=== PATIENT | male | born 1975 | race Two or more races ===

== ENCOUNTER 2018-10-17 20:36 | Emergency (ER) | payer MEDICAID ==
[~2018-10-17] VITALS: Ht 172.7 cm; Wt 74.8 kg
--- NOTE | 2018-10-17 20:56 | NUR ---
Dr. Cantor at bedside for MSE.
[2018-10-17] MEDS ORDERED: chlorproMAZINE 50 MG/2 ML AMPUL IM ONE (21:00)
[2018-10-17] MEDS ORDERED: QUET400T PO (21:02)
[2018-10-17] MEDS ORDERED: chlorproMAZINE 50 MG/2 ML AMPUL ONE (21:15)
[2018-10-17 21:26] LABS: BASOPHILS # (AUTO) 0.1 K/uL (0.0-8.0); EOSINOPHILS # (AUTO) 0.2 K/uL (0.0-0.7); NEUTROPHILS # (AUTO) 3.4 K/uL (1.8-8.9); WHITE BLOOD COUNT (AUTO) 7.8 K/uL (3.6-10.2)
[2018-10-17 21:31] LABS: BASOPHILS % (AUTO) 0.9 % (0.0-2.0); EOSINOPHILS % (AUTO) 2.1 % (0.0-7.0); HEMATOCRIT 36.6 % (36.7-47.1); LYMPHOCYTES # (AUTO) 3.2 K/uL (20.0-40.0); LYMPHOCYTES % (AUTO) 40.5 % (20.5-51.5); MEAN CORPUSCULAR HEMOGLOBIN 30.5 uug (23.8-33.4); MEAN CORPUSCULAR HGB CONC 36 g/dL (32.5-36.3); MEAN CORPUSCULAR VOLUME 85.8 fL (73.0-96.2); NEUTROPHILS % (AUTO) 43.5 % (38.5-71.5); PLATELET COUNT (AUTO) 268 K/uL (152-348); RED BLOOD CELL COUNT(AUTO) 4.27 MIL/uL (4.06-5.63)
--- NOTE | 2018-10-17 21:31 | NUR ---
Pt unable to provide urine sample. Provided a hospital sandwich.
[2018-10-17 21:33] LABS: CARBON DIOXIDE 28 mmol/L (21-32); CHLORIDE 102 mmol/L (98-107); CREATININE 0.9 mg/dL (0.6-1.3); GLUCOSE 98 mg/dL (74-106); POTASSIUM 3.7 mmol/L (3.5-5.1); UREA NITROGEN, BLOOD 13 mg/dL (7-18)
[2018-10-17 21:40] LABS: ALANINE AMINOTRANSFERASE 41 U/L (16-63); ALKALINE PHOSPHATASE 138 U/L (50-136); ASPARTATE AMINOTRANSFERASE 53 U/L (15-37); BILIRUBIN,DIRECT 0.1 mg/dL (0.0-0.2); BILIRUBIN,TOTAL 0.4 mg/dL (0.2-1.0); TOTAL PROTEIN, SERUM 7.3 g/dL (6.4-8.2)
[2018-10-17 21:42] LABS: ACETAMINOPHEN < 2.0 ug/mL (10-30)
[2018-10-17 21:50] LABS: ETHANOL 207 MG/DL (0-0)
--- NOTE | 2018-10-17 22:00 | NUR ---
Pt placed to room 3A. Pt keeps getting in and out of bed. Sitter at bedside.
[2018-10-17 22:04] LABS: THYROID STIMULATING HORMONE 1.849 mIU/mL (0.358-3.740)
--- NOTE | 2018-10-17 22:20 | NUR ---
Pt went down to radiology dept for CT scan.
--- NOTE | 2018-10-17 22:34 | NUR ---
Pt back from radiology dept, placed back to room 3A.
--- NOTE | 2018-10-18 00:12 | NUR ---
Pt is sleeping in bed. No acute distress noted. Respirations even + unlabored.
--- NOTE | 2018-10-18 02:40 | NUR ---
Pt is sleeping in bed. Respirations even + unlabored. No acute distress noted.
--- NOTE | 2018-10-18 05:00 | NUR ---
Pt ambulated to restroom, provided urine sample, sent to lab.
--- NOTE | 2018-10-18 05:01 | NUR ---
d/c russo catheter order
[2018-10-18 05:12] LABS: *BILIRUBIN,URIN NEGATIVE (NEGATIVE); *BLOOD, URINE NEGATIVE (NEGATIVE); *CLARITY,URINE CLEAR (CLEAR); *COLOR,URINE YELLOW (YELLOW); *KETONES,URINE NEGATIVE (NEGATIVE); LEUKOCYTE ESTERASE ,URINE NEGATIVE (NEGATIVE); NITRITE, URINE NEGATIVE (NEGATIVE); UGLUCOSE NEGATIVE (NEGATIVE)
[2018-10-18 05:29] LABS: BACTERIA,URINE NONE SEEN /HPF (NONE SEEN); RBC,URINE 0-3 /HPF (0-3); SQUAMOUS EPITHELIAL CELL,UR FEW /HPF (NONE SEEN); WBC,URINE 0-3 /HPF (0-3)
[2018-10-18 05:31] LABS: *AMPHETAMINE, URINE POSITIVE (NEGATIVE); *BARBITURATE, URINE NEGATIVE (NEGATIVE); *CANNABINOID, URINE POSITIVE (NEGATIVE); *COCCAINE, URINE NEGATIVE (NEGATIVE); *OPIATE, URINE NEGATIVE (NEGATIVE); *PHENCYCLIDINE SCREEN,URINE NEGATIVE (NEGATIVE)
--- NOTE | 2018-10-18 07:03 | NUR ---
Paged Mejia Saucedo for PET eval. ETA 1 hr
--- NOTE | 2018-10-18 07:03 | NUR ---
Report given to day shift nurse.
--- NOTE | 2018-10-18 07:10 | NUR ---
1 to 1 sitter at the bedside for safety. pt resting in bed w/ both eyes closed. NAD noted.
--- NOTE | 2018-10-18 07:51 | NUR ---
Breakfast provided, pt ate 100% of tray. no c/o pain.
--- NOTE | 2018-10-18 08:54 | NUR ---
Mejia Saucedo from PET at the bedside for Rik ceballos.
--- NOTE | 2018-10-18 09:05 | NUR ---
powder workerMadai contacted for homeless assissrtance protocol.
--- NOTE | 2018-10-18 09:53 | NUR ---
Patient discharged in stable conditon. Written and verbal after care instructions given. Patient verbalizes understanding of instructions. Pt discharged per hospital homeless protocol.
--- NOTE | 2018-10-18 10:43 | NUR ---
9:15am: SW arrived to ED for SS consultation. SW spoke with CLAIR Lutz and endless steamer tender Mejia Saucedo regarding patient's case. Patient is medically cleared and also cleared by Mejia Saucedo (see Mjeia Saucedo's notes). SW met with patient to discuss homeless placement options and homeless resources. Patient is a 43 year old homeless male. Patient was in his assigned ED bed, receptive to meeting with this SW. Patient was pleasant and cooperative, oriented x 4. Patient stated he has been homeless for 4 years, living either on the streets or in shelters. SW asked patient if there was any family/friend that SW could call for him, but patient stated that he did not have any family/friends to contact. Patient was dressed in jeans, a sweater, and tennis shoes, all were clean and well kept. SW offered patient additional clothing, but patient declined stating that he was fine with the clothes he had and they were warm. SW discussed winter long-term options, along with additional homeless resources for places to go for meals, showers, medical/mental health services, and pharmacies. Patient expressed agreement to all resources discussed. SW offered patient the option to wait until the afternoon for the hospital to transport him to a long-term's pick-up location, but patient declined and stated that he could get there himself. SW provided patient with a list of the [facility] shelters, identifying the ones in the [facility] and reviewing the orange picker machine operator locations and times with the patient. Patient expressed understanding. SW also provided patient with a list of pharmacies throughout the [facility], a list of medical clinics, mental health clinics, and substance abuse treatment programs, and the [facility] Homeless Resource Directory which includes a list of locations, with days and times, for homeless to get hot meals, showers, sack lunches, and food pantries. Patient asked for a prescription of Seroquel, which was provided by Dr. Montana. SW once again screened for SI, but patient denied. Patient provided with a bus token. Patient was provided with a breakfast tray, which he ate. Patient expressed understanding of all resources provided, expressed gratitude, and was discharged to self. Patient signed the homeless patient waiver form, and left the ED with stable gait. The signed homeless waiver form filed in patient's ED chart. Copies of all resources provided were also filed in patient's ED chart.
== END 2018-10-18 09:56 | disposition home or self-care (01) ==
LOC: ER 20:36
DX: R41.0 Disorientation, unspecified (principal); F32.9 Major depressive disorder, single episode, unspecified; Z79.899 Other long term (current) drug therapy; Z59.0 Homelessness
CPT/HCPCS: 36415; 70450; 71045; 72125; 80048; 80076; 80307; 81001; 82140; 84443; 84484; 85025; 85730; 93005; 96372; 99284; G0480 ×2; G0481; J3230; 70030-TC; A4663

== ENCOUNTER 2019-11-02 04:17 | Emergency (ER) | payer MEDICAID ==
[~2019-11-02] VITALS: Ht 175.3 cm; Wt 77.1 kg
--- NOTE | 2019-11-02 04:47 | NUR ---
PATIENT WAS MSE BY DR GUNDERSON IN ROOM 03A.
[2019-11-02] MEDS ORDERED: QUETIAPINE FUMARATE 200 MG TABLET ONE (04:51)
[2019-11-02] MEDS ORDERED: QUETIAPINE FUMARATE 25 MG TABLET PO ONE (05:00)
--- NOTE | 2019-11-02 05:04 | NUR ---
PT IS RESTING IN BED COMFORTABLY. NO S/S OF DISTRESS AT THIS TIME. CONTINUE TO MONITOR THE PT.
--- NOTE | 2019-11-02 07:48 | NUR ---
Hot breakfast [email or web address].
--- NOTE | 2019-11-02 07:51 | NUR ---
Patient is eating breakfast with good appetite.
--- NOTE | 2019-11-02 08:12 | NUR ---
PT WAS D/C'd FROM [facility]. D/C INSTRUCTIONS GIVEN TO THE PT. NO S/S OF DISTRESS AT THIS TIME.
[2019-11-02 08:17] VITALS: BP 141/72
== END 2019-11-02 08:18 | disposition home or self-care (01) ==
LOC: ER 04:23
DX: F15.10 Other stimulant abuse, uncomplicated (principal); Z76.0 Encounter for issue of repeat prescription; Z59.0 Homelessness; Z79.899 Other long term (current) drug therapy
CPT/HCPCS: A4663